=== PATIENT | male | born 1985 | race Two or more races ===

== ENCOUNTER 2020-10-03 21:20 | Emergency (ER) | payer OTHER ==
[~2020-10-03] VITALS: Ht 185.4 cm; Wt 1110.0 kg
[2020-10-03 23:44] VITALS: BP 140/90
== END 2020-10-03 23:48 | disposition home or self-care (01) ==
LOC: ER 21:20
DX: R06.4 Hyperventilation (principal); R03.0 Elevated blood-pressure reading, without diagnosis of hypertension
CPT/HCPCS: 93005; 99283

== ENCOUNTER 2024-03-22 09:16 | Emergency (ER) | payer MEDICAID, OTHER ==
[~2024-03-22] VITALS: Ht 170.2 cm; Wt 73.0 kg
[2024-03-22 09:20] VITALS: O2SAT 100
[2024-03-22] MEDS: ONDANSETRON 4MG ODT PO ONE (10:00)
[2024-03-22 10:26] LABS: HEMATOCRIT. 43.5 % (42.0-52.0); HEMOGLOBIN. 14.5 g/dL (14.0-18.0); MEAN CORPUSCULAR HEMOGLOBIN 31.1 pg (28.0-32.0); MEAN CORPUSCULAR HGB CONC 33.4 g/dL (31.0-37.0); MEAN CORPUSCULAR VOLUME 93.1 fL (80.0-94.0); MEAN PLATELET VOLUME 8.9 fl (7.4-10.4); PLATELET 282 x1000/uL (130-400); RED BLOOD CELL COUNT 4.67 mill/uL (4.7-6.1); RED CELL DISTRIBUTION WIDTH 13.8 % (11.6-14.6); WHITE BLOOD COUNT 15.8 x1000/uL (4.5-11.0)
[2024-03-22 10:32] LABS: CHLORIDE 107 mEq/L (98-107); SODIUM 143 mEq/L (136-145)
[2024-03-22 10:33] LABS: CALCIUM 9.5 mg/dL (8.7-10.4); CARBON DIOXIDE 24 mEq/L (21-32)
[2024-03-22 10:38] LABS: CREATININE 0.9 mg/dL (0.6-1.3); GLUCOSE 104 mg/dL (70-105); UREA NITROGEN BLOOD 15 mg/dL (9-23)
[2024-03-22 10:40] LABS: ALANINE AMINOTRANSFERASE 29 IU/L (10-49); ALBUMIN 4.8 g/dL (3.2-4.8); ASPARTATE AMINOTRANSFERASE 35 IU/L (<34); BILIRUBIN DIRECT 0.3 mg/dL (<=3.0)
[2024-03-22 10:41] LABS: BILIRUBIN TOTAL 0.8 mg/dL (0.1-1.0); PROTEIN TOTAL 7.1 g/dL (6.0-8.3)
[2024-03-22 10:47] LABS: DIFFERENTIAL COMMENT 1
[2024-03-22 11:28] LABS: TROPONIN I HIGH SENSITIVITY < 4 ng/L (3.0-53)
[2024-03-22] MEDS: LACTATED RINGERS 1,000 ML IV SCH (12:13)
[2024-03-22] MEDS: KETOROLAC 15MG/ML VIAL IV ONE (12:44)
[2024-03-22 13:58] LABS: T4 FREE 1.3 ng/dL (0.89-1.76); THYROID STIMULATING HORMONE 0.7 uIU/mL (0.55-4.78)
[2024-03-22 14:05] VITALS: BP 114/56; PULSE 57; RESP 12; TEMP 99.4
[2024-03-22 14:27] LABS: PLATELET ESTIMATE NORMAL
== END 2024-03-22 14:25 | disposition left against medical advice (07) ==
LOC: ER 09:25 → EDBEDREQTM 12:28 → EDBEDREQ 12:28 → ER 14:25
DX: F10.129 Alcohol abuse with intoxication, unspecified (principal); F12.90 Cannabis use, unspecified, uncomplicated; R00.1 Bradycardia, unspecified; Z98.890 Other specified postprocedural states; Y90.9 Presence of alcohol in blood, level not specified
CPT/HCPCS: 99285; 74176; 96374; 96361; 80076; 80048; 84439; 83690; 84443; 85025; 84484; 93005; 84481; 36415; Q0162; J1885